=== PATIENT | male | born 1955 | race Two or more races ===

== ENCOUNTER 2023-02-04 07:22 | Outpatient (CLI) | payer OTHER | END 2023-02-04 07:29 | disposition home or self-care (01) | LOC: NUCLEAR 07:22 | PROVIDERS: ATTEND Internal Medicine Cardiovascular Disease | DX: I25.10 Atherosclerotic heart disease of native coronary artery without angina pectoris (principal) | CPT/HCPCS: 78452; 93017; A9500 ==